=== PATIENT | female | born 1965 | race Caucasian/White ===

== ENCOUNTER 2017-03-06 11:00 | Emergency (ER) | payer BC, OTHER ==
[~2017-03-06] VITALS: Ht 154.9 cm; Wt 116.4 kg
[2017-03-06 11:00] VITALS: TEMP 36.9; Ht 154.9 cm; Wt 116.4 kg
[2017-03-06] MEDS ORDERED: ZNTT/150 PO (11:12)
[2017-03-06] MEDS ORDERED: ALBUT/IPRATROP 3MG/0.5MG NEB 3 ML VIAL INH STA (11:21)
--- NOTE | 2017-03-06 11:49 | DIAGNOSTIC IMAGING REPORT ---
CHEST 2 VIEWS ROUTINE CLINICAL HISTORY: cough x 1 week, eval PNA dyspnea COMPARISON STUDY: No previous studies for comparison. FINDINGS: Mild prominence of the peribronchial and basal lung markings. No well-defined focal infiltrate. No evidence for cardiac enlargement. IMPRESSION: Mild bronchitis. Electronically signed by: Adelso Ashley M.D. 03/06/2017 11:48 AM Dictated Date/Time: 03/06/2017 11:48 AM
[2017-03-06 12:48] LABS: MANUAL MICROSCOPIC REQUIRED? NO; REVIEW REQ? NO; URINE APPEARANCE CLEAR (CLEAR); URINE BILIRUBIN NEG (NEG); URINE COLOR DK YELLOW; URINE EPITHELIAL CELL AUTO >30 /lpf (0-5); URINE NITRITE POS (NEG); URINE SPECIFIC GRAVITY 1.025 (1.000-1.030); UROBILINOGEN NEG (NEG); ZZUR CULT IF INDIC CLEAN CATCH YES
--- NOTE | 2017-03-06 13:10 | EMERGENCY ROOM VISIT NOTE ---
History First contact with patient: 11:13 Chief Complaint: COUGH Stated Complaint: DRY COUGH, BODY ACHES Nursing Triage Summary: triage note: Pt reports "i have a bad dry cough that started on the 5th, i feel like crap." History of Present Illness The patient is a 51 year old female who presents to the Emergency Room with complaints of cough for 1 week. She states the cough is dry and nonproductive, she has been taking NyQuil and Robitussin without improvement. She is a heavy daily smoker, but states she has barely been able to smoke for the past week due to her coughing. She states the cough is worse at night. She denies any nasal congestion, sore throat, ear pain, fever/chills, chest pain, shortness of breath, coughing up blood. She also mentions some dysuria for the past few days , wants to be checked for UTI. Review of Systems A complete 10 point review of systems was reviewed with the patient with pertinent positives and negatives as per history of present illness. All else were negative. Social History Smoking Status: Current Every Day Smoker Current/Historical Medications Scheduled Azithromycin (Zithromax Z-Ankur), 1 PKT PO UD Cephalexin Monohydrate (Keflex), 500 MG PO TID Ranitidine (Zantac), 150 MG PO BID Allergies Coded Allergies: No Known Allergies (Unverified , 03/06/17) Physical Exam Vital Signs Date Time Temp Pulse Resp B/P (MAP) Pulse Ox O2 Delivery O2 Flow Rate FiO2 03/06/17 13:45 82 20 122/61 92 03/06/17 11:00 36.9 88 20 156/86 92 Room Air Physical Exam CONSTITUTIONAL: No acute distress. Well appearing and well nourished. Alert and oriented X 4 with normal affect. HEENT: Normocephalic, atraumatic. Pupils equal, round and reactive to light, EOMI. TMs normal. Pharynx normal. NECK: Supple, full active range of motion without discomfort. RESPIRATORY: Inspiratory and expiratory wheezing heard in the bases, no rhonchi or stridor. Equal expansion bilaterally. CARDIOVASCULAR: Regular rate and rhythm with no murmurs, rubs or gallops. Normal peripheral perfusion. No edema. GASTROINTESTINAL: Soft, nontender, nondistended. Bowel sounds present in all quadrants. MUSCULOSKELETAL: Full range of motion of all joints without discomfort. INTEGUMENTARY: No rash or other significant dermatologic conditions noted. NEUROLOGIC: Cranial nerves II-XII grossly intact. No focal neurologic deficits noted. No Medical Decision & Procedures ER Provider Diagnostic Interpretation: CHEST 2 VIEWS ROUTINE CLINICAL HISTORY: cough x 1 week, eval PNA dyspnea COMPARISON STUDY: No previous studies for comparison. FINDINGS: Mild prominence of the peribronchial and basal lung markings. No well-defined focal infiltrate. No evidence for cardiac enlargement. IMPRESSION: Mild bronchitis. Laboratory Results Test 03/06/17 12:15 Urine Color DK YELLOW Urine Appearance CLEAR (CLEAR) Urine pH 5.0 (4.5-7.5) Urine Specific [place] 1.025 (1.000-1.030) Urine Protein NEG (NEG) Urine Glucose (UA) NEG (NEG) Urine Ketones TRACE (NEG) Urine Occult Blood 1+ (NEG) Urine Nitrite POS (NEG) Urine Bilirubin NEG (NEG) Urine Urobilinogen NEG (NEG) Urine Leukocyte Esterase NEG (NEG) Urine WBC (Auto) 1-5 /hpf (0-5) Urine RBC (Auto) 0-4 /hpf (0-4) Urine Hyaline Casts (Auto) 10-30 /lpf (0-5) Urine Epithelial Cells (Auto) >30 /lpf (0-5) Urine Bacteria (Auto) 4+ (NEG) Medications Administered Medications (Trade) Dose Ordered Sig/Chelo Route Start Time Stop Time Status Last Admin Dose Admin Albuterol/ Ipratropium (Duoneb) 3 ml NOW STAT INH 03/06/17 11:21 03/06/17 11:23 DC 03/06/17 11:53 3 ML Medical Decision CC: Patient presenting with complaint of cough Differential Diagnosis: Includes, but not limited to bronchitis, pneumonia, viral URI, UTI Medication Reconciliation: I attest that I have personally reviewed the patient' s current medication list. Vital signs review: I reviewed the patient's vital signs and interpret them as follows: T: Afebrile; BP: Hypertensive; HR: Within normal limits; RR: Within normal limits; Pulse Ox: Within normal limits on room air. Blood pressure screening: The patient was found to have an elevated blood pressure and was referred to their primary doctor for recheck and further treatment. Summary: Patient was evaluated at bedside, history of physical exam performed. Patient alert and in no acute distress, and with no complaints. Lungs with expiratory and inspiratory wheezing, no rhonchi or crackles. Good air movement. Chest x-ray ordered to rule out pneumonia, is negative. More suggestive of bronchitis. Patient was given DuoNeb with some improvement in symptoms. Albuterol inhaler with spacer provided to the patient for home use. Urinalysis shows UTI, culture pending. I discussed antibiotic options with patient, she prefers to go on two agents rather than one. Z-Ankur ordered for bronchitis due to her smoking, Keflex ordered for UTI. Patient discussed with Dr. Coburn, who agrees with my assessment and plan. Patient reassessed multiple times throughout ED stay, she remains well appearing with no active complaints. Patient updated on all results and plan for discharge home. She was encouraged to follow closely with her PCP, she verbalized understanding. Patient discharged home in stable condition and ambulatory. Impression Primary Impression: Acute bronchitis Additional Impression: UTI (urinary tract infection) Departure Information Dispostion Home / Self-Care Condition GOOD Prescriptions Cephalexin Monohydrate (KEFLEX) 500 Mg Cap 500 MG PO TID for 5 Days, #15 CAP Prov: Padmini Arambula CRNP 03/06/17 Azithromycin (ZITHROMAX Z-ANKUR) 250 Mg Tab 1 PKT PO UD for 5 Days, #6 TAB Prov: Padmini Arambula CRNP 03/06/17 Referrals No Doctor, Assigned (PCP) Patient Instructions Bronchitis Acute Dc, ED Smoking Cessation, ED UTI Cystitis Female, My [facility] Additional Instructions You have been treated in the Emergency Department for a Urinary Tract Infection (UTI) and acute bronchitis. You were prescribed azithromycin (Z-Ankur ) to be taken as prescribed for 5 days. This is an antibiotic to treat your bronchitis. You have been prescribed Keflex to be taken 3 times a day for 5 days. This is an antibiotic to treat your UTI. All antibiotics have the potential to cause diarrhea. Stop this medication and contact a medical provider if you were to develop any significant adverse side effects including: wheezing, shortness of breath, passing out, vomiting, or a diffuse rash. Always take antibiotics as directed and COMPLETE the ENTIRE course regardless of the improvement of your symptoms. Use the albuterol inhaler with spacer 2 puffs every 4 hours as needed for cough and wheezing. Drink plenty of water and stay well hydrated. As with any trip to the Emergency Department, you should follow-up with your Primary Care Provider in 2-3 days from today's visit. Return to the emergency department if your symptoms persist despite treatment plan outlined above or if the following symptoms occur: Chest pain, shortness of breath, severe dizziness or passing out, coughing up blood, increased fevers , chills, low back pain, nausea/vomiting, or blood in your urine. Problem Qualifiers Primary Impression: Acute bronchitis Bronchitis organism: unspecified organism Qualified Codes: J20.9 - Acute bronchitis, unspecified Additional Impression: UTI (urinary tract infection) Urinary tract infection type: site unspecified Hematuria presence: without hematuria Qualified Codes: N39.0 - Urinary tract infection, site not specified
[2017-03-06] MEDS ORDERED: CEPH500C2 PO (13:31)
[2017-03-06] MEDS ORDERED: AZITTAB PO (13:31)
[2017-03-06] MEDS ORDERED: ALBUTEROL HFA 8 GM INHALER INH ONE ×2 (13:41→14:00)
[2017-03-06 13:45] VITALS: BP 122/61; PULSE 82; O2SAT 92
== END 2017-03-06 13:45 | disposition home or self-care (01) ==
LOC: C.EDB 11:00 → C.EDC 13:45
DX: J20.9 Acute bronchitis, unspecified (principal); N39.0 Urinary tract infection, site not specified; F17.210 Nicotine dependence, cigarettes, uncomplicated; Z79.899 Other long term (current) drug therapy